=== PATIENT | male | born 1990 | race Two or more races ===

== ENCOUNTER 2017-12-22 07:16 | Emergency (ER) | payer MEDICAID ==
[~2017-12-22] VITALS: Ht 180.3 cm; Wt 90.7 kg
[2017-12-22 07:24] VITALS: Ht 180.3 cm; Wt 90.7 kg
[2017-12-22 08:35] VITALS: BP 131/70
== END 2017-12-22 08:35 | disposition home or self-care (01) ==
LOC: ED 07:16
DX: L30.9 Dermatitis, unspecified (principal)

== ENCOUNTER 2018-01-15 00:10 | Emergency (ER) | payer MEDICAID ==
[~2018-01-15] VITALS: Ht 177.8 cm; Wt 99.5 kg
[2018-01-15 02:11] VITALS: BP 124/83
== END 2018-01-15 01:50 | disposition home or self-care (01) ==
LOC: ED 00:10
DX: S61.215A Laceration without foreign body of left ring finger without damage to nail, initial encounter (principal); S61.217A Laceration without foreign body of left little finger without damage to nail, initial encounter; W54.0XXA Bitten by dog, initial encounter; Y93.89 Activity, other specified; Y92.89 Other specified places as the place of occurrence of the external cause; Y99.8 Other external cause status

== ENCOUNTER 2018-01-29 22:57 | Emergency (ER) | payer MEDICAID ==
[~2018-01-29] VITALS: Ht 180.3 cm; Wt 90.7 kg
[2018-01-29 23:07] VITALS: BP 123/76; Ht 180.3 cm; Wt 90.7 kg
== END 2018-01-30 01:19 | disposition home or self-care (01) ==
LOC: ED 22:57
DX: S09.8XXA Other specified injuries of head, initial encounter (principal); Y04.0XXA Assault by unarmed brawl or fight, initial encounter; Y93.89 Activity, other specified; Y92.89 Other specified places as the place of occurrence of the external cause; Y99.8 Other external cause status
CPT/HCPCS: Q0162

== ENCOUNTER 2019-11-11 23:55 | Emergency (ER) | payer MEDICAID ==
[~2019-11-11] VITALS: Ht 175.3 cm; Wt 108.4 kg
[2019-11-12 00:06] VITALS: Ht 175.3 cm; Wt 108.4 kg
[2019-11-12 01:38] VITALS: BP 157/87
== END 2019-11-12 01:38 | disposition home or self-care (01) ==
LOC: ED 23:55
DX: J02.9 Acute pharyngitis, unspecified (principal)

== ENCOUNTER 2019-11-30 18:52 | Emergency (ER) | payer MEDICAID ==
[~2019-11-30] VITALS: Ht 175.3 cm; Wt 106.1 kg
[2019-11-30 18:55] VITALS: Ht 175.3 cm; Wt 106.1 kg
[2019-11-30 20:13] LABS: BASOPHIL % 0.4 % (0-2); PLATELET COUNT 214 x10^3mcL (130-400); RED CELL DISTRIBUTION WIDTH 13.2 % (11.5-14.5)
[2019-11-30 20:55] LABS: CALCIUM 8.3 mg/dL (8.5-10.1); CARBON DIOXIDE 26.8 mmol/L (21-32); CHLORIDE SERUM 104 mmol/L (98-107); CREATININE SERUM 0.9 mg/dL (0.7-1.3); GFR1 > 60 mL/min; GLUCOSE SERUM 80 mg/dL (74-106); SODIUM SERUM 139 mmol/L (136-145)
[2019-11-30 21:12] VITALS: BP 137/79
== END 2019-11-30 21:12 | disposition home or self-care (01) ==
LOC: ED 18:52
PROVIDERS: Emergency Medicine
DX: M94.0 Chondrocostal junction syndrome [Tietze] (principal); I10 Essential (primary) hypertension
CPT/HCPCS: 36415; J1885; Q0092

== ENCOUNTER 2020-08-27 21:10 | Emergency (ER) | payer MEDICAID ==
[~2020-08-27] VITALS: Ht 177.8 cm; Wt 97.1 kg
[2020-08-27 21:20] VITALS: Ht 177.8 cm; Wt 97.1 kg
[2020-08-27 23:02] VITALS: BP 129/77
== END 2020-08-27 23:02 | disposition home or self-care (01) ==
LOC: ED 21:10
DX: R04.0 Epistaxis (principal); I10 Essential (primary) hypertension